=== PATIENT | male | born 1980 | race Two or more races ===

== ENCOUNTER 2022-12-29 12:17 | Inpatient (IN) | payer MEDICAID, OTHER ==
[~2022-12-29] VITALS: Ht 185.4 cm; Wt 104.0 kg
[2022-12-29] MEDS ORDERED: LORazepam 2MG/ML-1ML VIAL IV ONE (13:00)
[2022-12-29] MEDS ORDERED: SODIUM CHLORIDE 0.9% 1,000 ML IV ONE ×3 (13:00→15:00)
[2022-12-29 13:17] LABS: Amphetamine Screen, Urine Neg (NEGATIVE)
[2022-12-29 13:19] LABS: Barbiturate Scree,Urine Neg (NEGATIVE); Benzodiazephine Screen, Urine Pos (NEGATIVE); Cannabinoid Screen, Urine Pos (NEGATIVE); Cocaine Screen, Urine Pos (NEGATIVE); Opiate Scree,Urine Neg (NEGATIVE); Phencyclidine Screen, Urine Neg (NEGATIVE); Urine Bacteria NONE SEEN /hpf (None Seen); Urine Blood Negative /uL (Negative); Urine Clarity Clear (Clear); Urine Color Yellow (Yellow); Urine Protein, UAD 1+ (Negative); Urine Specific Gravity 1.014 (1.001-1.035); Urine Urobilinogen Normal (Negative); Urine WBC <1 /hpf (0 - 3); Urine pH 6.5 (5.0-8.0)
[2022-12-29 13:19] LABS: Basophils # (auto) 0 10 ^3/uL (0-0.2); Basophils % (auto) 0.4 % (0.0-2.0); Eosinophils # (auto) 0 10 ^3/uL (0-0.8); Eosinophils % (auto) 0.2 % (0.0-7.0); Hematocrit 48.3 % (41.0-53.0); Hemoglobin 16.4 g/dL (13.5-17.5); Lymphocytes # (auto) 2.1 10 ^3/uL (0.4-5.4); Lymphocytes % (auto) 20.4 % (10.0-50.0); Mean Corpuscular Hemoglobin 29.3 pg (28.0-32.0); Mean Corpuscular Hgb Conc. 34.1 g/dL (32.0-36.0); Mean Corpuscular Volume 86.1 fL (80.0-100.0); Monocytes # (auto) 0.5 10 ^3/uL (0-1.3); Monocytes % (auto) 5.3 % (0.0-12.0); Neutrophils # (auto) 7.5 10 ^3/uL (1.6-8.6); Neutrophils % (auto) 73.7 % (37.0-80.0); Nucleated Red Blood Cells % 0.5 %; Red Blood Cells 5.61 10^6/uL (4.5-5.90); Red Cell Distribution Width 13.8 % (11.8-14.3); White Blood Cell 10.1 10^3/uL (4.4-10.8)
[2022-12-29 13:33] LABS: Alanine Aminotransferase 47 U/L (7-40); Albumin 5.3 g/dL (3.2-4.8); Alkaline Phosphatase 92 U/L (46-116); Anion Gap 11.2 (5-15); Aspartate Aminotransferase 43 U/L (13-40); Blood Alcohol 78.6 mg/dL (<10); Blood Urea Nitrogen 8 mg/dL (9-23); Calcium 9.9 mg/dL (8.5-10.1); Carbon Dioxide 23.8 mmol/L (20-30); Chloride 104 mmol/L (98-107); Glucose 93 mg/dL (74-106); Potassium 4.6 mmol/L (3.5-5.1); Sodium 139 mmol/L (136-145)
[2022-12-29 13:34] LABS: Bilirubin, Total 0.7 mg/dL (0.2-1.0); Total Protein 8.3 g/dL (5.7-8.2)
[2022-12-29 14:26] LABS: Lactic Acid w/Reflex 2.6 mmol/L (0.4-2.0)
[2022-12-29] MEDS ORDERED: MULTIPLE VITAMIN TAB PO ONE (20:15)
[2022-12-29] MEDS ORDERED: LORazepam 2MG/ML-1ML VIAL IV PRN (20:15)
[2022-12-29] MEDS ORDERED: THIAMINE HCL 100 MG TAB PO ONE (20:15)
[2022-12-29] MEDS ORDERED: FOLIC ACID 1 MG TAB PO ONE (20:15)
[2022-12-29] MEDS ORDERED: ONDANSETRON HCL 4 MG/2 ML VIAL IV PRN (20:15)
[2022-12-29] MEDS ORDERED: traMADol HCL 50 MG TAB PO PRN (20:30)
[2022-12-29] MEDS ORDERED: ACETAMINOPHEN 325 MG TAB PO PRN (20:30)
[2022-12-29] MEDS: chlordiazePOXIDE HCL 25 MG CAP PO SCH (23:09)
[2022-12-30 06:43] LABS: Basophils # (auto) 0.1 10 ^3/uL (0-0.2); Basophils % (auto) 0.7 % (0.0-2.0); Eosinophils # (auto) 0.1 10 ^3/uL (0-0.8); Eosinophils % (auto) 0.8 % (0.0-7.0); Hematocrit 43.3 % (41.0-53.0); Lymphocytes # (auto) 1.7 10 ^3/uL (0.4-5.4); Lymphocytes % (auto) 20.2 % (10.0-50.0); Mean Corpuscular Hemoglobin 29.5 pg (28.0-32.0); Mean Corpuscular Hgb Conc. 34.7 g/dL (32.0-36.0); Mean Corpuscular Volume 84.9 fL (80.0-100.0); Monocytes # (auto) 0.7 10 ^3/uL (0-1.3); Monocytes % (auto) 7.6 % (0.0-12.0); Neutrophils # (auto) 6.1 10 ^3/uL (1.6-8.6); Neutrophils % (auto) 70.7 % (37.0-80.0); Nucleated Red Blood Cells % 0.1 %; Red Cell Distribution Width 13.4 % (11.8-14.3); White Blood Cell 8.6 10^3/uL (4.4-10.8)
[2022-12-30] MEDS: chlordiazePOXIDE HCL 25 MG CAP PO SCH ×2 (07:02→13:21)
[2022-12-30 07:19] LABS: Alanine Aminotransferase 38 U/L (7-40); Alkaline Phosphatase 76 U/L (46-116); Anion Gap 10.7 (5-15); Aspartate Aminotransferase 36 U/L (13-40); BUN/Creatinine Ratio 9.2 (10.0-20.0); Blood Urea Nitrogen 7 mg/dL (9-23); Calcium 8.9 mg/dL (8.5-10.1); Carbon Dioxide 21.3 mmol/L (20-30); Chloride 106 mmol/L (98-107); Glucose 93 mg/dL (74-106); LDL Cholesterol 154 mg/dL (< 100); Potassium 3.9 mmol/L (3.5-5.1); Sodium 138 mmol/L (136-145); Triglycerides 293 mg/dL (< 150)
[2022-12-30 07:20] LABS: Albumin 4.3 g/dL (3.2-4.8); Bilirubin, Total 1.4 mg/dL (0.2-1.0); Cholesterol 221 mg/dL (< 200); HDL Cholesterol 44 mg/dL (40-59)
[2022-12-30] MEDS: PANTOPRAZOLE 40 MG TAB PO SCH (07:53)
[2022-12-30] MEDS: FOLIC ACID 1 MG TAB PO SCH (07:53)
[2022-12-30] MEDS: THIAMINE HCL 100 MG TAB PO SCH (07:54)
[2022-12-30] MEDS: MULTIPLE VITAMIN TAB PO SCH (07:54)
[2022-12-30 08:02] VITALS: PULSE 82; RESP 18; O2SAT 96
[2022-12-30] MEDS ORDERED: chlordiazePOXIDE HCL 25 MG CAP PO SCH (10:00)
[2022-12-30 15:40] VITALS: PULSE 78; RESP 20; O2SAT 95
[2022-12-30 18:33] VITALS: BP 125/77; PULSE 86; RESP 18; TEMP 98.4; O2SAT 97
[2022-12-30 18:37] VITALS: PULSE 86; RESP 18; O2SAT 97
[2022-12-30] MEDS ORDERED: LORA-1121 PO (18:51)
[2022-12-30 20:00] VITALS: BP 113/72; PULSE 91; RESP 20; TEMP 98.5; O2SAT 96
[2022-12-30 22:00] VITALS: BP 113/72; PULSE 91; RESP 20; TEMP 98.5; O2SAT 96
[2022-12-31 05:00] VITALS: BP 118/80; PULSE 84; RESP 20; TEMP 98; O2SAT 99
[2022-12-31 07:54] VITALS: BP 113/72; PULSE 91; RESP 20; TEMP 98.5; O2SAT 96
[2022-12-31 09:00] VITALS: BP 122/81; PULSE 79; RESP 18; TEMP 97.4; O2SAT 97
[2022-12-31] MEDS: PANTOPRAZOLE 40 MG TAB PO SCH (09:42)
[2022-12-31] MEDS: MULTIPLE VITAMIN TAB PO SCH (09:42)
[2022-12-31] MEDS: FOLIC ACID 1 MG TAB PO SCH (09:42)
[2022-12-31] MEDS: THIAMINE HCL 100 MG TAB PO SCH (09:42)
[2022-12-31] MEDS ORDERED: chlordiazePOXIDE HCL 25 MG CAP PO SCH (10:00)
[2022-12-31] MEDS ORDERED: CHL25C PO (10:58)
[2022-12-31] MEDS ORDERED: FOLI-119 PO (10:58)
[2022-12-31] MEDS ORDERED: MULT1TAB95 PO (10:58)
[2022-12-31] MEDS ORDERED: THIA100T13 PO (10:58)
[2022-12-31] MEDS ORDERED: PANT40T PO (10:58)
[2022-12-31] MEDS ORDERED: ATO40T PO (11:00)
[2022-12-31 11:56] VITALS: BP 122/81; PULSE 79; RESP 18; TEMP 97.4; O2SAT 99
[2022-12-31 12:32] VITALS: BP 134/85; PULSE 88; RESP 17; TEMP 98.5; O2SAT 96
[2023-01-01] MEDS ORDERED: chlordiazePOXIDE HCL 25 MG CAP PO SCH (07:00)
== END 2022-12-31 16:14 | disposition home or self-care (01) | DRG 422 ==
LOC: ER 12:17 → OVERFLOW 20:24 → WEST WING 12-30 18:18
PROVIDERS: ADMIT Nurse Practitioner Family; ATTEND Family Medicine
DX: E86.0 Dehydration (principal); E78.00 Pure hypercholesterolemia, unspecified; F10.129 Alcohol abuse with intoxication, unspecified; F19.10 Other psychoactive substance abuse, uncomplicated; F41.9 Anxiety disorder, unspecified; F10.139 Alcohol abuse with withdrawal, unspecified; Y90.3 Blood alcohol level of 60-79 mg/100 ml; Z71.41 Alcohol abuse counseling and surveillance of alcoholic
CPT/HCPCS: 36415; 80053; 80061; 80307; 80320; 81001; 83605; 83735; 84484; 85025; 93005; 96361; 96374; G0378